=== PATIENT | male | born 1985 | race Caucasian/White ===

== ENCOUNTER 2019-03-11 21:22 | Emergency (ER) | payer SELFPAY ==
[~2019-03-11] VITALS: Ht 167.6 cm; Wt 62.0 kg
[2019-03-11] MEDS ORDERED: TETANUS, DIPHTHERIA, PERTUSSIS VAC/PF 0.5ML (>7YR OLD) IM ONE (21:45)
[2019-03-11] MEDS ORDERED: BACITRACIN ZINC OINT UDPKT TOP ONE (21:45)
[2019-03-11] MEDS ORDERED: IBUPROFEN 600MG TABLET PO ONE (21:45)
[2019-03-11] MEDS ORDERED: LIDOCAINE 1%/EPI 1:100,000 10 ML VIAL IJ ONE (21:45)
[2019-03-11] MEDS ORDERED: BACITRACIN 15GM TUBE TOP NR (22:24)
[2019-03-11 23:00] VITALS: BP 125/73
== END 2019-03-11 23:00 | disposition home or self-care (01) ==
LOC: ER 21:22
DX: S51.811A Laceration without foreign body of right forearm, initial encounter (principal); F17.210 Nicotine dependence, cigarettes, uncomplicated; W22.8XXA Striking against or struck by other objects, initial encounter; W25.XXXA Contact with sharp glass, initial encounter; Y93.89 Activity, other specified; Y92.018 Other place in single-family (private) house as the place of occurrence of the external cause
CPT/HCPCS: 12002; 73090; 90471; 90715; 99283; J3490

== ENCOUNTER 2019-03-15 11:00 | Emergency (ER) | payer SELFPAY ==
[~2019-03-15] VITALS: Ht 170.2 cm; Wt 65.0 kg
[2019-03-15 12:06] VITALS: BP 118/79
== END 2019-03-15 13:45 | disposition left against medical advice (07) ==
LOC: ER 11:00
DX: R68.89 Other general symptoms and signs (principal); Z53.21 Procedure and treatment not carried out due to patient leaving prior to being seen by health care provider

== ENCOUNTER 2019-03-25 09:20 | Emergency (ER) | payer SELFPAY ==
[~2019-03-25] VITALS: Ht 167.6 cm; Wt 64.0 kg
[2019-03-25 10:46] VITALS: BP 113/70
== END 2019-03-25 10:47 | disposition home or self-care (01) ==
LOC: ER 09:20
DX: Z48.02 Encounter for removal of sutures (principal); S50.11XD Contusion of right forearm, subsequent encounter; W25.XXXD Contact with sharp glass, subsequent encounter
CPT/HCPCS: 99281